=== PATIENT | female | born 1975 | race Caucasian/White ===

== ENCOUNTER 2017-04-08 19:26 | Emergency (ER) | payer BC ==
[~2017-04-08] VITALS: Ht 165.1 cm; Wt 111.6 kg
[~2017-04-08 19:26] MED LIST: ACHYD1T PO; BPR100T PO; BUTA1TAB55 PO; CIPR-17 PO; CITA40TA19 PO; DCS100C PO; HYDR-3583 PO; IBP800T PO; METR500T PO; MULT1CAP27 PO; PROP40TA5 PO; VNL75CCR PO
[2017-04-08] MEDS ORDERED: LORA-407 PO (20:08)
[2017-04-08] MEDS ORDERED: ESCI20TA45 PO (20:08)
--- NOTE | 2017-04-08 20:28 | ED General ---
General Chief Complaint: Dizziness/Syncope Stated Complaint: HEAD INJ, FALL IN SHOWER Nursing Triage Note: pt reports she was in the shower when she became dizzy and fell. pt reports hitting head on floor. pt denies loc. Nursing Sepsis Screen: No Definite Risk Source of Information: Patient Exam Limitations: No Limitations History of Present Illness Time Seen by Provider: 20:26 Initial Comments To ER with a syncopal event. Patient was in the shower bent over shaving her legs. When she stood up and turned she became very dizzy and lightheaded which caused her to fall striking the left side of her forehead on the floor. There was questionable loss of consciousness, no neck pain. She does have a headache and nausea but no vomiting. Timing/Duration: 1/2 Hour Severity: Moderate Associated Systoms: Nausea/Vomiting Allergies and Home Medications Allergies Coded Allergies: No Known Drug Allergies (Verified , 12/12/09) Home Medications Butalb/Acetaminophen/Caffeine 1 Each Tablet, 1 EACH PO Q4HR PRN, #10 Prescribed by: PORTIA SOMMER on 01/13/14 478 Escitalopram Oxalate 20 Mg Tablet, 20 MG PO HS, (Reported) Lorazepam 2 Mg Tablet, 2 MG PO, (Reported) Venlafaxine Hcl 75 Mg Cap, 75 MG PO DAILY, (Reported) Constitutional: see HPI EENTM: see HPI Respiratory: no symptoms reported Cardiovascular: no symptoms reported Genitourinary: no symptoms reported Musculoskeletal: no symptoms reported Skin: no symptoms reported Psychiatric/Neurological: No Symptoms Reported Past Unzhlsg-Dcjrap-Zvpkxq Hx Patient Social History Alcohol Use: Denies Use Recreational Drug Use: No Smoking Status: Never a Smoker Recent Foreign Travel: No Contact w/Someone Who Travel: No Recent Infectious Disease Expo: No Recent Hopitalizations: Yes (CHILD ) Surgeries HX Surgeries: Yes Surgeries: Appendectomy, Hysterectomy, Tonsillectomy Respiratory Hx Respiratory Disorders: No Cardiovascular Hx Cardiac Disorders: No Neurological Hx Neurological Disorders: Yes Reproductive System Hx Reproductive Disorders: Yes (ABNORMAL PAPS IN THE PAST) Sexually Transmitted Disease: No 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 Genitourinary Hx Genitourinary Disorders: No Gastrointestinal Hx Gastrointestinal Disorders: No Musculoskeletal Hx Musculoskeletal Disorders: No Endocrine Hx Endocrine Disorders: No HEENT HX ENT Disorders: No Cancer Hx Cancer: No Psychosocial Hx Psychiatric Problems: Yes Behavioral Health Disorders: Sleep Difficulties, Depression Integumentary HX Skin/Integumentary Disorder: No Blood Transfusions Hx Blood Disorders: No Physical Exam Vital Signs Vital Sign - Last 12Hours 04/08/17 20:00 Temp 98.1 Pulse 91 Resp 18 B/P (MAP) 111/66 Capillary Refill : Less Than 3 Seconds General Appearance: No Apparent Distress, WD/WN Eyes: Bilateral Eye EOMI, Bilateral Eye Normal Inspection, Bilateral Eye PERRL HEENT: PERRL/EOMI, TMs Normal Neck: Full Range of Motion, Normal Inspection Respiratory: No Accessory Muscle Use, No Respiratory Distress Cardiovascular: Regular Rate, Rhythm, Normal Peripheral Pulses Gastrointestinal: Normal Bowel Sounds, Non Tender, Soft Extremity: Normal Capillary Refill, Normal Inspection Neurologic/Psychiatric: Alert, Oriented x3, No Motor/Sensory Deficits Skin: Normal Color, Warm/Dry Progress/Results/Core Measures Results/Orders My Orders Orders - PAYAL CAO APRN Urine Bedside (04/08/17 20:18) Ct Head Wo (04/08/17 20:18) Orthostatic Vital Signs (04/08/17 20:24) Acetaminophen Tablet (Tylenol Tablet) (04/08/17 20:30) Ibuprofen Tablet (Motrin Tablet) (04/08/17 20:30) Medications Given in ED Current Medications Medications Dose Ordered Sig/Lorena Route Start Time Stop Time Status Last Admin Dose Admin Acetaminophen 1,000 mg ONCE ONCE PO 04/08/17 20:30 04/08/17 20:31 DC 04/08/17 20:45 1,000 MG Ibuprofen 600 mg ONCE ONCE PO 04/08/17 20:30 04/08/17 20:31 DC 04/08/17 20:45 600 MG Vital Signs/I&O Vital Sign - Last 12Hours 04/08/17 20:00 Temp 98.1 Pulse 91 Resp 18 B/P (MAP) 111/66 Blood Pressure Mean: 81 Departure Impression Impression: Primary Impression: Concussion Disposition: 01 HOME, SELF-CARE Condition: Stable Departure-Patient Inst. Decision time for Depature: 20:54 Referrals: ROSAURA MACIEL APRN (PCP) Primary Care Physician Patient Instructions: Concussion in Adults Add. Discharge Instructions: 1. Return to ER for any concerns 2. You should remain home from work tomorrow. He may return on Wednesday you may return on Wednesday if you are without headache nausea vomiting or dizziness. Unfortunately concussions may take up to a couple of weeks to recovery from in the basis of the recovery is physical and cognitive rest. If you are without All discharge instructions reviewed with patient and/or family. Voiced understanding. PAYAL CAO APRN Apr 08, 2017 20:28
[2017-04-08] MEDS ORDERED: IBUPROFEN 600 MG (MOTRIN) TAB PO ONE (20:30)
[2017-04-08] MEDS ORDERED: ACETAMINOPHEN 500 MG TAB (TYLENOL) PO ONE (20:30)
--- NOTE | 2017-04-08 20:50 | Diagnostic Imaging Report ---
PROCEDURE: CT head without contrast. TECHNIQUE: Multiple contiguous axial images were obtained through the brain without the use of intravenous contrast. INDICATION: Fall. Head injury. COMPARISON: CT head without contrast from 01/13/2014. FINDINGS: No intracranial hemorrhage, mass effect, hydrocephalus or extra-axial fluid collections. Osseous structures are intact. The visualized paranasal sinuses and mastoids are clear. No CT evidence of acute infarction. IMPRESSION: Negative head CT. Dictated by: Dictated on workstation # [id number]
[2017-04-08 21:17] VITALS: BP 125/74
== END 2017-04-08 21:17 | disposition home or self-care (01) ==
LOC: EDUNIT# 19:26 → ER 19:28
DX: S06.0X9A Concussion with loss of consciousness of unspecified duration, initial encounter (principal); F32.9 Major depressive disorder, single episode, unspecified; Z90.710 Acquired absence of both cervix and uterus; Z90.49 Acquired absence of other specified parts of digestive tract; Z90.89 Acquired absence of other organs; W18.2XXA Fall in (into) shower or empty bathtub, initial encounter
CPT/HCPCS: 70450; 99283

== ENCOUNTER → 2017-06-23 | Outpatient (CLI) | payer BC ==
[~2017-06-23] MED LIST changes: +ESCI20TA45 PO; +LORA-407 PO
--- NOTE | 2017-06-23 10:51 | Diagnostic Imaging Report ---
PROCEDURE: MRI left upper extremity without contrast. TECHNIQUE: Multiplanar, multisequence non contrast-enhanced MRI of the left upper extremity was accomplished. INDICATION: Fall. FINDINGS: There is no os acromiale or Hill-Sachs deformity. The acromioclavicular joint demonstrates mild degenerative changes and minimal inferior osteophytes. There is mild thickening and increased signal in the supraspinatus and infraspinatus tendons suggestive of tendinosis and low-grade intrasubstance partial tear. This is particularly prominent along the anterior fibers of the supraspinatus. There is minimal reactive fluid in the subacromial subdeltoid bursa. The subscapular tendon appears to be intact. The long head biceps tendon is within its groove. There is focal increased signal along the superior labrum at the level of the biceps anchor suggestive of nondisplaced tear. The muscle bulk and signal around the shoulder is normal. The bone marrow signal is within normal limits. IMPRESSION: 1. There is tendinosis and low-grade intrasubstance tear involving the supraspinatus and infraspinatus tendons. 2. Suggestion of a nondisplaced focal SLAP tear. Dictated by: Dictated on workstation # [id number]
== END ==
LOC: RAD 09:11
PROVIDERS: ATTEND Nurse Practitioner Family
DX: M75.112 Incomplete rotator cuff tear or rupture of left shoulder, not specified as traumatic (principal)
CPT/HCPCS: 73221

== ENCOUNTER → 2017-07-19 | Outpatient (CLI) | payer BC ==
[~2017-07-19] MED LIST changes: +GADOBUTROL 7.5 MMOL/7.5 ML (GADAVIST) VIAL IV ONE; +IOHEXOL 300 MG/ML 50 ML (OMNIPAQUE 300) VIAL IV ONE; +LIDOCAINE 1% INJ 20 ML (XYLOCAINE) VIAL ONE
--- NOTE | 2017-07-19 17:47 | Diagnostic Imaging Report ---
EXAMINATION: Fluoroscopic guided joint injection/arthrogram- left shoulder. INDICATION: Left shoulder pain, request for MR arthrogram of the shoulder is submitted. Fluoroscopy time: 26 seconds CONSENT: Informed consent was obtained from the patient. The risks, benefits, potential complications and alternatives were reviewed and all questions answered to the patient's satisfaction. PROCEDURE: After sterile preparation and draping, 1% lidocaine was utilized for local anesthesia. A 22 spinal needle is introduced into the glenohumeral joint under fluoroscopic guidance. After confirmation of proper positioning with intra-articular injection of, 15 ml of 1:150 concentration of Gadavist in normal saline is injected the into the joint. The patient tolerated the procedure well with no immediate complications. FINDINGS: Arthrogram demonstrates Normal distribution of contrast in the joint with no filling of the subacromial subdeltoid bursa seen. IMPRESSION: Successful fluoroscopic guided injection of diluted gadolinium into the left shoulder . MR arthrogram to follow. Dictated by: Dictated on workstation # [id number]
--- NOTE | 2017-07-19 17:52 | Diagnostic Imaging Report ---
PROCEDURE: MRI left joint upper extremity with contrast. TECHNIQUE: Multiplanar, multisequence contrast-enhanced MRI of the left upper extremity was accomplished. INDICATION: Left shoulder pain. FINDINGS: There is no os acromiale or Hill-Sachs deformity. There is good distention of the shoulder joint with the intra-articular contrast. The long head of biceps tendon is within its groove. There is a longitudinal increased signal within the horizontal segment of the long head biceps tendon, distal to its anchor at the labrum suggestive of an intrasubstance the tear. There is no full-thickness or retracted tear. The glenoid labrum demonstrates irregularity along the undersurface of its substance just posterior to the biceps anchor suggestive of fraying or minimal nondisplaced focal tear. The supraspinatus and infraspinatus tendons demonstrate no significant tear. There is minimal AC joint osteoarthritic change with tiny inferior osteophytes and capsular hypertrophy that have a mild impression upon the supraspinatus myotendinous junction. The subscapularis tendon appears intact. The muscle bulk and signal around the shoulder appear normal. The bone marrow signal in the bones around the shoulder area appears normal. IMPRESSION: 1. There is a hyperintense linear signal abnormality within the horizontal portion of the long head biceps tendon suggestive of an intrasubstance tear. 2. The undersurface of the superior segment of the labrum demonstrates mild irregularity which may relate to fraying or small focal tear. Dictated by: Dictated on workstation # [id number]
== END ==
LOC: RAD 13:10
PROVIDERS: ATTEND Orthopaedic Surgery
DX: M25.512 Pain in left shoulder (principal)
CPT/HCPCS: 23350; 73040; 73222

== ENCOUNTER 2017-10-11 11:30 | Outpatient (RCR) | payer BC ==
[~2017-10-11 11:30] MED LIST changes: -GADOBUTROL 7.5 MMOL/7.5 ML (GADAVIST) VIAL IV ONE; -IOHEXOL 300 MG/ML 50 ML (OMNIPAQUE 300) VIAL IV ONE; -LIDOCAINE 1% INJ 20 ML (XYLOCAINE) VIAL ONE
== END 2017-11-10 07:00 | disposition home or self-care (01) ==
PROVIDERS: ATTEND Nurse Practitioner Family
DX: Z47.89 Encounter for other orthopedic aftercare (principal); M25.512 Pain in left shoulder

== ENCOUNTER → 2018-01-19 | Outpatient (CLI) | payer BC ==
--- NOTE | 2018-01-19 15:41 | Diagnostic Imaging Report ---
INDICATION: Elevated PTH and calcium. TECHNIQUE: The patient was administered 20.2 mCi technetium 99m sestamibi intravenously. Imaging over the neck and upper chest was performed at 20 minutes and 2 hours. SPECT/CT was also performed. FINDINGS: There is normal physiologic uptake within the salivary glands bilaterally. Early images demonstrate homogeneous activity throughout both lobes of thyroid gland. No abnormal foci on the delayed images are identified to suggest parathyroid adenoma. IMPRESSION: Unremarkable parathyroid study. Dictated by: Dictated on workstation # [id number]
== END ==
LOC: CARD 12:00
PROVIDERS: ATTEND Family Medicine
DX: R74.8 Abnormal levels of other serum enzymes (principal); R79.89 Other specified abnormal findings of blood chemistry
CPT/HCPCS: 78072

== ENCOUNTER → 2020-06-17 | Outpatient (CLI) | payer BC | LOC: LABNPT 08:46 | PROVIDERS: ATTEND Family Medicine | DX: J02.9 Acute pharyngitis, unspecified (principal); R09.81 Nasal congestion; Z20.828 Contact with and (suspected) exposure to other viral communicable diseases | CPT/HCPCS: 87635 ==

== ENCOUNTER 2020-06-25 06:21 | Emergency (ER) | payer BC ==
[~2020-06-25] VITALS: Ht 165.1 cm; Wt 113.8 kg
[2020-06-25] MEDS ORDERED: LACTATED RINGERS 1,000 ML IV ONE (07:21)
[2020-06-25 07:38] LABS: BASOPHILS % (AUTO) 0 % (0-10); EOSINOPHILS % (AUTO) 0 % (0-10); HEMATOCRIT 41 % (35-52); HEMOGLOBIN 14.1 g/dL (11.5-16.0); LYMPHOCYTES # (AUTO) 1.5 10^3/uL (1.0-4.0); LYMPHOCYTES % (AUTO) 28 % (12-44); MEAN CORPUSCULAR HEMOGLOBIN 30 pg (25-34); MEAN CORPUSCULAR HGB CONC 35 g/dL (32-36); MEAN CORPUSCULAR VOLUME 86 fL (80-99); MEAN PLATELET VOLUME 9.8 fL (9.0-12.2); MONOCYTES # (AUTO) 0.3 10^3/uL (0.0-1.0); MONOCYTES % (AUTO) 6 % (0-12); NEUTROPHILS # (AUTO) 3.6 10^3/uL (1.8-7.8); NEUTROPHILS % (AUTO) 66 % (42-75); PLATELET COUNT 154 10^3/uL (130-400); WHITE BLOOD COUNT 5.4 10^3/uL (4.3-11.0)
[2020-06-25 07:55] LABS: ALBUMIN 4.3 GM/DL (3.2-4.5); CHLORIDE 102 MMOL/L (98-107); POTASSIUM 3.3 MMOL/L (3.6-5.0); SODIUM 135 MMOL/L (135-145)
[2020-06-25 07:57] LABS: CALCIUM 8.7 MG/DL (8.5-10.1)
[2020-06-25 07:58] LABS: GLUCOSE 96 MG/DL (70-105); TOTAL PROTEIN 7.8 GM/DL (6.4-8.2)
[2020-06-25 07:59] LABS: CARBON DIOXIDE 22 MMOL/L (21-32)
[2020-06-25 08:00] LABS: BILIRUBIN,TOTAL 0.5 MG/DL (0.1-1.0)
[2020-06-25 08:01] LABS: ALKALINE PHOSPHATASE 77 U/L (40-136)
[2020-06-25 08:02] LABS: CREATININE SERUM 0.89 MG/DL (0.60-1.30); GFR ESTIMATED > 60
[2020-06-25 08:03] LABS: BUN/CREATININE RATIO 11
[2020-06-25 08:04] LABS: ALANINE AMINOTRANSFERASE 12 U/L (0-55); MAGNESIUM 1.6 MG/DL (1.6-2.4)
--- NOTE | 2020-06-25 08:38 | Diagnostic Imaging Report ---
EXAMINATION: Chest, 1 view. HISTORY: Chest pain, cough. COMPARISON: 06/27/2007. FINDINGS: The lungs are clear without edema or pneumonia. No pleural effusion or pneumothorax. Heart size is normal. IMPRESSION: Clear lungs. Dictated by: Dictated on workstation # [id number]
--- NOTE | 2020-06-25 08:52 | ED General ---
General Chief Complaint: Cough/Cold/Flu Symptoms Stated Complaint: COVID SYMPTOMS, FEVER 100.,COUGH Nursing Triage Note: TO ED VIA POV AND AMBULATORY TO ROOM 9 WITH PUI PRECAUTIONS. C/O TEMPS IN 100 RANGE, BODY ACHES, DIARRHEA OFF AND ON, DRY COUGH, LOSS OF TASTE, CHEST DISCOMFORT. TESTED NEGATIVE FOR COVID 19 ON 07/17. 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 Nursing Sepsis Screen: Possible Severe Sepsis Risk Source of Information: Patient Exam Limitations: No Limitations History of Present Illness Date Seen by Provider: Jun 25, 2020 Time Seen by Provider: 06:40 Initial Comments This 44-year-old woman presents to the emergency room with persistent symptoms flulike or COVID like symptoms. She has been ill over a week and had a negative COVID 19 test performed on June 17. She was placed on a Z-[place] and prednisone. She initially improved but then started to feel worse again yesterday. She has atypical chest pain and pleuritic chest pain with cough or inspiration. She has had fevers hovering around the 100.0F range. She has decreased taste and cough for the disrupt her sleep. She has also had diarrhea without vomiting. She reports urine output is normal and she has been able to drink plenty of fluids. She is hoping to be tested again for COVID today. Oxygen saturations are in the high 90s but she is tachycardic. Allergies and Home Medications Allergies Coded Allergies: No Known Drug Allergies (Verified , 12/12/09) Home Medications Benzonatate 100 Mg Capsule, 200 MG PO TID PRN for COUGH Prescribed by: TIKI LUIS on 06/25/20 0905 Butalb/Acetaminophen/Caffeine 1 Each Tablet, 1 EACH PO Q4HR PRN Prescribed by: PORTIA SOMMER on 01/13/14 1742 Escitalopram Oxalate 20 Mg Tablet, 20 MG PO HS, (Reported) Venlafaxine Hcl 75 Mg Cap, 75 MG PO DAILY, (Reported) Patient Home Medication List Home Medication List Reviewed: Yes Review of Systems Review of Systems Constitutional: see HPI EENTM: no symptoms reported Respiratory: see HPI Cardiovascular: see HPI Gastrointestinal: no symptoms reported Genitourinary: no symptoms reported : No Musculoskeletal: no symptoms reported Skin: no symptoms reported Psychiatric/Neurological: No Symptoms Reported Hematologic/Lymphatic: No Symptoms Reported Immunological/Allergic: no symptoms reported Past Codvzuv-Ituztm-Adivru Hx Past Med/Social Hx: Reviewed Nursing Past Med/Soc Hx Patient Social History Alcohol Use: Denies Use Recreational Drug Use: No Smoking Status: Never a Smoker Recent Foreign Travel: No Contact w/Someone Who Travel: No Recent Infectious Disease Expo: No Recent Hopitalizations: Yes (CHILD ) Physical Abuse: No Sexual Abuse: No Mistreated: No Fear: No Past Medical History Surgeries: Yes Appendectomy, Hysterectomy, Tonsillectomy Respiratory: No Cardiac: No Neurological: Yes Reproductive Disorders: Yes (ABNORMAL PAPS IN THE PAST) 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 0.0oz. 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 Norm as Tested Skin: Normal Color, Warm/Dry Progress/Results/Core Measures Suspected Sepsis Recent Fever Within 48 Hours: Yes Infection Criteria Present: Suspected New Infection New/Unexplained Altered Menta: No Sepsis Screen: Possible Severe Sepsis Risk SIRS Temperature: Pulse: 110 Respiratory Rate: 20 Laboratory Tests 06/25/20 07:32: White Blood Count 5.4 Blood Pressure 120 /94 Mean: 103 Laboratory Tests 06/25/20 07:32: Creatinine 0.89, Platelet Count 154, Total Bilirubin 0.5 Results/Orders Lab Results Laboratory Tests Test 06/25/20 07:32 Range/Units White Blood Count 5.4 4.3-11.0 10^3/uL Red Blood Count 4.73 3.80-5.11 10^6/uL Hemoglobin 14.1 11.5-16.0 g/dL Hematocrit 41 35-52 % Mean Corpuscular Volume 86 80-99 fL Mean Corpuscular Hemoglobin 30 25-34 pg Mean Corpuscular Hemoglobin Concent 35 32-36 g/dL Red Cell Distribution Width 12.7 10.0-14.5 % Platelet Count 154 130-400 10^3/uL Mean Platelet Volume 9.8 9.0-12.2 fL Immature Granulocyte % (Auto) 0 % Neutrophils (%) (Auto) 66 42-75 % Lymphocytes (%) (Auto) 28 12-44 % Monocytes (%) (Auto) 6 0-12 % Eosinophils (%) (Auto) 0 0-10 % Basophils (%) (Auto) 0 0-10 % Neutrophils # (Auto) 3.6 1.8-7.8 10^3/uL Lymphocytes # (Auto) 1.5 1.0-4.0 10^3/uL Monocytes # (Auto) 0.3 0.0-1.0 10^3/uL Eosinophils # (Auto) 0.0 0.0-0.3 10^3/uL Basophils # (Auto) 0.0 0.0-0.1 10^3/uL Immature Granulocyte # (Auto) 0.0 0.0-0.1 10^3/uL D-Dimer 0.51 H 0.00-0.49 UG/ML Sodium Level 135 135-145 MMOL/L Potassium Level 3.3 L 3.6-5.0 MMOL/L Chloride Level 102 98-107 MMOL/L Carbon Dioxide Level 22 21-32 MMOL/L Anion Gap 11 5-14 MMOL/L Blood Urea Nitrogen 10 7-18 MG/DL Creatinine 0.89 0.60-1.30 MG/DL Estimat Glomerular Filtration Rate > 60 BUN/Creatinine Ratio 11 Glucose Level 96 70-105 MG/DL Calcium Level 8.7 8.5-10.1 MG/DL Corrected Calcium 8.5 8.5-10.1 MG/DL Magnesium Level 1.6 1.6-2.4 MG/DL Total Bilirubin 0.5 0.1-1.0 MG/DL Aspartate Amino Transf (AST/SGOT) 22 5-34 U/L Alanine Aminotransferase (ALT/SGPT) 12 0-55 U/L Alkaline Phosphatase 77 40-136 U/L C-Reactive Protein High Sensitivity 2.13 H 0.00-0.50 MG/DL Total Protein 7.8 6.4-8.2 GM/DL Albumin 4.3 3.2-4.5 GM/DL Micro Results Microbiology 06/25/20 Influenza Types A,B Antigen (DEAN) - Final, Complete My Orders Orders - TIKI MASSEY MD Influenza A And B Antigens (06/25/20 06:50) Ed Iv/Invasive Line Start (06/25/20 07:21) Lactated Ringers (Lr 1000 Ml Iv Solution (06/25/20 07:21) Cbc With Automated Diff (06/25/20 07:21) Comprehensive Metabolic Panel (06/25/20 07:21) Hs C Reactive Protein (06/25/20 07:21) Fibrin Degradation Products (06/25/20 07:21) Magnesium (06/25/20 07:21) Chest 1 View, Ap/Pa Only (06/25/20 07:21) Coronavirus Sars-Cov-2 So 2018 (06/25/20 07:24) Medications Given in ED Current Medications Medications Dose Ordered Sig/Lorena Route Start Time Stop Time Status Last Admin Dose Admin Lactated Ringer's 1,000 ml @ 0 mls/hr Q0M ONCE IV 06/25/20 07:21 06/25/20 07:25 DC 06/25/20 07:36 1,000 MLS/HR Vital Signs/I&O 06/25/20 06/25/20 06/25/20 06:40 06:40 09:14 Temp 37.9 Pulse 110 101 Resp 20 20 B/P (MAP) 120/94 (103) 124/82 (103) Pulse Ox 99 O2 Delivery Room Air Room Air Room Air Capillary Refill : Less Than 3 Seconds Blood Pressure Mean: 103 Progress Note : Progress Note Patient wished to start her workup with an influenza swab which was negative. We discussed further workup. Because of her chest discomfort and her tachycardia, we elected to proceed with workup. Labs were obtained along with a chest x-ray. Chest x-ray was unremarkable. D-dimer returned minimally elevated at 0.52. Although at this level it is highly unlikely she has a DVT or PE, we discussed obtaining further studies such as lower extremity ultrasound or CT angiogram of the chest. We reviewed risks and benefits including benefits of being able to identify pneumonia, pulmonary embolism, etc. with CT imaging versus cost and radiation exposure as risks. Ultimately, patient decided to forego any further testing after our discussion. She will call or return to care if she changes her mind or if symptoms worsen. Tessalon Perles were prescribed to help with the cough. Diagnostic Imaging Diagonstic Imaging: Xray Plain Films/CT/US/NM/MRI: chest Comments Chest x-ray viewed by me and report reviewed. See report below: NAME: SATISH STEPHENS [facility] REC#: [id number] PT STATUS: REG ER : 1975 PHYSICIAN: TIKI MASSEY MD ADMIT DATE: 06/25/20/ER Draft * Date of Exam:06/25/20 CHEST 1 VIEW, AP/PA ONLY EXAMINATION: Chest, 1 view. HISTORY: Chest pain, cough. COMPARISON: 06/27/2007. FINDINGS: The lungs are clear without edema or pneumonia. No pleural effusion or pneumothorax. Heart size is normal. IMPRESSION: Clear lungs. Dictated on workstation # [id number] Dict: 06/25/2037 Trans: 06/25/20 0838 [id number] Interpreted by: JOHN YOO MD Departure Impression Primary Impression: Influenza-like symptoms Additional Impressions: Person under investigation for COVID-19 Pleuritic chest pain Disposition: 01 HOME, SELF-CARE Condition: Improved Departure-Patient Inst. Decision time for Depature: 09:01 Referrals: HERSON GORMAN MD (PCP/Family) Primary Care Physician Patient Instructions: Coronavirus Disease 2019 (COVID-19) (DC) Add. Discharge Instructions: Please remain on quarantine until the results of your COVID-19 testing is known. This should take 24-48 hours to return. Drink plenty of clear liquids to stay well-hydrated. You may take ibuprofen up to 600 mg every 6 hours and/or Tylenol (acetaminophen) up to 1000 mg every 6 hours as needed for pain or fever. Return to care if you have worsening symptoms. Call your primary care provider or Dr. Massey in the ER today with any other questions or concerns. All discharge instructions reviewed with patient and/or family. Voiced understanding. Scripts Benzonatate (TESSALON PERLES) 100 Mg Capsule 200 MG PO TID PRN for COUGH, #20 CAP Prov: TIKI MASSEY MD 06/25/20 Work/School Note: Work Release Form Date Seen in the Emergency Department: Jun 25, 2020 Return to Work: Jun 29, 2020 Other Restrictions Listed Below: Return when free of fever or significant symptoms for 72 hrs if COVID neg. Restrictions: If COVID-19 positive, follow health department instructions. Copy Copies To 1: HERSON GORMAN MD, JOSHUA T MD Jun 25, 2020 08:52
[2020-06-25] MEDS ORDERED: BENZ100C18 PO (09:05)
[2020-06-25 09:14] VITALS: BP 124/82
== END 2020-06-25 09:14 | disposition home or self-care (01) ==
LOC: EDUNIT# 06:21 → ER 06:24
DX: U07.1 COVID-19 (principal); R07.81 Pleurodynia; F41.9 Anxiety disorder, unspecified; F32.9 Major depressive disorder, single episode, unspecified
CPT/HCPCS: 71045; 80053; 83735; 85025; 85379; 86141; 87804; U0002; 36415; 87635

== ENCOUNTER → 2021-08-04 | Outpatient (CLI) | payer BC ==
[~2021-08-04] MED LIST changes: +BENZ100C18 PO; +ESCI20TA39 PO; -ESCI20TA45 PO
--- NOTE | 2021-08-04 09:26 | Diagnostic Imaging Report ---
INDICATION: Routine screening. COMPARISON: 11/20/2011. TECHNIQUE: 2D and 3D bilateral screening mammography was performed with CAD. FINDINGS: Scattered fibroglandular densities are identified bilaterally. A tiny benign-appearing nodule in the central right breast is noted. There is no spiculated mass or malignant-appearing microcalcifications. The axillae are unremarkable. IMPRESSION: No mammographic features suspicious for malignancy are identified. ACR BI-RADS Category 2: Benign findings. Result letter will be mailed to the patient. Note: At least 10% of breast cancer is not imaged by mammography. Dictated by: Dictated on workstation # [id number]
== END ==
LOC: RAD 07:56
PROVIDERS: ATTEND Nurse Practitioner Family
DX: Z12.31 Encounter for screening mammogram for malignant neoplasm of breast (principal)
CPT/HCPCS: 77063; 77067